=== PATIENT | male | born 1960 | race African-American/Black ===

== ENCOUNTER 2016-11-05 11:04 | Emergency (ER) ==
[2016-11-05 11:16] VITALS: BP 147/93; TEMP 97.2; BMI 23.7
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
[2016-11-05] MEDS ORDERED: PROTONIX IV IVP STA (12:14)
[2016-11-05 12:40] LABS: BASOPHILS % (AUTO) 0.6 % (0.0-3.0); EOSINOPHILS # (AUTO) 0.2 K/ul (0.0-0.7); EOSINOPHILS % (AUTO) 4.4 % (0.0-7.0); HEMATOCRIT 42.1 % (42.0-52.0); HEMOGLOBIN 14.2 g/dl (14.0-18.0); LYMPHOCYTES # (AUTO) 2.2 K/uL (0.60-3.4); LYMPHOCYTES % (AUTO) 43.7 (10.0-50.0); MEAN CORPUSCULAR HEMOGLOBIN 29.9 pg (27.0-31.0); MEAN CORPUSCULAR HGB CONC 33.7 (31.8-35.4); MEAN CORPUSCULAR VOLUME 88.6 fl (80.0-94.0); MONOCYTES # (AUTO) 0.6 K/uL (0.4-2.0); NEUTROPHILS % (AUTO) 40.3; PLATELET COUNT 208 10^3/uL (140-440); RED BLOOD COUNT 4.75 10^6/ul (4.70-6.10); WHITE BLOOD COUNT 5.01 K/ul (4.2-10.2)
[2016-11-05 13:14] LABS: ALANINE AMINOTRANSFERASE 25 U/L (12-78); ALBUMIN 4.1 g/dL (3.4-5.0); ALBUMIN/GLOBULIN RATIO 1.21; ALKALINE PHOSPHATASE 64 U/L (50-136); ANION GAP 13.3; ASPARTATE AMINO TRANSFERASE 19 U/L (15-37); BILIRUBIN,TOTAL 0.22 mg/dL (0.00-1.20); BLOOD UREA NITROGEN 19 mg/dL (7-18); BUN/CREATININE RATIO 18.26; CALCIUM 9.2 mg/dL (8.2-10.2); CARBON DIOXIDE 31 mmol/L (21-32); CHLORIDE 102 mmol/L (98-107); CREATINE KINASE 212 U/L; CREATININE 1.04 mg/dL (0.60-1.10); GLUCOSE 97 mg/dL (70-100); POTASSIUM 4.3 mmol/L (3.5-5.1); SODIUM 142 mmol/L (136-145); TOTAL PROTEIN 7.5 g/dL (6.4-8.2)
[2016-11-05 13:17] LABS: CREATINE KINASE MB 2.6 ng/ml (0.0-3.6)
[2016-11-05] MEDS ORDERED: GI COCKTAIL PO STA (13:18)
--- NOTE | 2016-11-05 13:45 | DI ---
EXAM: Chest one view HISTORY: Chest pain COMPARISON: 02/18/2011 TECHNIQUE: Single view of the chest was performed FINDINGS: The lungs are clear. There is no pleural effusion or pneumothorax. The heart is normal in size. The mediastinal contour is normal. There are no acute abnormalities of the bones. IMPRESSION: No acute cardiopulmonary process.
[2016-11-05] MEDS ORDERED: AMOXIL PO SCH (21:00)
[2016-11-05] MEDS ORDERED: BIAXIN PO SCH (21:00)
== END 2016-11-05 14:25 | disposition home or self-care (01) ==
LOC: ED 11:04
DX: K20.9 Esophagitis, unspecified (principal); R07.89 Other chest pain; Z79.899 Other long term (current) drug therapy
CPT/HCPCS: 36415; 80053; 82550; 82553; 84484; 85025; 85379; 93005; 93010; 96374; 99283

== ENCOUNTER 2017-08-31 11:05 | Emergency (ER) ==
[2017-08-31 11:06] VITALS: BMI 23.7
[2017-08-31] MEDS ORDERED: DECADRON 4 MG/ML SDV IM STA (11:18)
[2017-08-31] MEDS ORDERED: COLCRYS PO STA (11:18)
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
[2017-08-31 11:45] LABS: BASOPHILS % (AUTO) 0.6 % (0.0-3.0); EOSINOPHILS # (AUTO) 0.1 K/ul (0.0-0.7); HEMATOCRIT 39.9 % (42.0-52.0); HEMOGLOBIN 13.8 g/dl (14.0-18.0); IMMATURE GRANULOCYTE % (AUTO) 0.1 % (0.0-5.0); LYMPHOCYTES % (AUTO) 28.7 (10.0-50.0); MEAN CORPUSCULAR HEMOGLOBIN 30.2 pg (27.0-31.0); MEAN CORPUSCULAR HGB CONC 34.6 (31.8-35.4); MEAN CORPUSCULAR VOLUME 87.3 fl (80.0-94.0); MONOCYTES # (AUTO) 0.6 K/uL (0.4-2.0); MONOCYTES % (AUTO) 8.6 (0-10); NEUTROPHILS # (AUTO) 4.1 K/ul (2.0-6.9); PLATELET COUNT 192 10^3/uL (140-440); RED BLOOD COUNT 4.57 10^6/ul (4.70-6.10); WHITE BLOOD COUNT 6.87 K/ul (4.2-10.2)
[2017-08-31 12:06] LABS: ALBUMIN 3.8 g/dL (3.4-5.0); ALBUMIN/GLOBULIN RATIO 1.15; BILIRUBIN,TOTAL 0.19 mg/dL (0.00-1.20); BUN/CREATININE RATIO 24.24; CALCIUM 9.2 mg/dL (8.2-10.2); CREATININE 0.99 mg/dL (0.60-1.10); TOTAL PROTEIN 7.1 g/dL (6.4-8.2); URIC ACID 6.6 mg/dL (2.6-7.2)
[2017-08-31] MEDS ORDERED: STADOL IM STA (13:04)
[2017-08-31 13:07] VITALS: TEMP 96.7
[2017-08-31 13:49] VITALS: BP 177/98
--- NOTE | 2017-08-31 15:11 | DI ---
EXAM: LEFT FOOT, 3 VIEWS HISTORY: Pain and tenderness great toe FINDINGS / IMPRESSION: There is moderate hallux valgus. 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 No fracture or dislocation is identified. No joint effusion.
== END 2017-08-31 13:58 | disposition home or self-care (01) ==
LOC: ED 11:05
DX: M10.072 Idiopathic gout, left ankle and foot (principal); Z79.899 Other long term (current) drug therapy
CPT/HCPCS: 36415; 80053; 84550; 85025; 96372; 99283

== ENCOUNTER 2017-12-27 11:39 | Outpatient (CLI) | END 2017-12-27 11:40 | disposition home or self-care (01) | LOC: RHC-LAB 11:39 | PROVIDERS: ATTEND Nurse Practitioner Family | DX: R05 Cough (principal) | CPT/HCPCS: 87651; 87804 ==

== ENCOUNTER 2017-12-30 09:10 | Outpatient (CLI) ==
--- NOTE | 2017-12-30 14:48 | MRI ---
EXAM: Brain MRI without contrast. HISTORY: Headache. COMPARISON: Head CT 02/19/2011. TECHNIQUE: Multiplanar, multisequence MR images were acquired of the brain without contrast. FINDINGS: The midline structures are central and the craniocervical junction is unremarkable. The v entricles, sulci and cisterns are generally mildly prominent compatible with age related involutional changes. The brain parenchyma is no restricted diffusion to suggest acute hypoperfusion or infarction. There is a moderately large chronic left MCA branch infarct involving the left frontal lobe and contiguous anterior left parietal lobe. This extends from the superior left frontal lobe at the convexity to th e sylvian fissure and into the posterior left gibson radiata, posterior basal ganglia and posterior i nternal and external capsules. This produces ex vacuo enlargement of the posterior body and atrium o f the left lateral ventricle and mild enlargement the left sylvian fissure. There is a thin rim of pe riventricular FLAIR hyperintensity that is considered normal. A few of T2 hyperintensities are prese nt in the supratentorial white matter compatible the with minimal leukomalacia. Pulsation artifact i s noted in the posterior fossa. There is wallerian degeneration with volume loss and faint bright T2 signal in the left thalamus and volume loss in the left cerebral peduncle and bay. Volume loss and focal bright FLAIR signal is present in the left medullary pyramid. There is no abnormal dark gradi ent echo signal to indicate intracranial hemorrhage. There is minor gyriform T1 hyperintensity with thin linear gradient echo signal in the superior component of the left frontal lobe infarct compatibl e with laminar necrosis. There is attenuation of the posterior body of the corpus callosum. The pit uitary gland is low normal in size. There are no intraorbital masses. The frontal sinus is hypoplastic. Minor mucosal thickening is pre sent in the ethmoid air cells with more focal mucosal thickening in a posterior left ethmoid air cell . That maxillary sinuses are moderate to markedly hypoplastic. There is mild adenoidal hypertrophy with a small right nasopharyngeal submucosal cyst. Middle ears and mastoids are unremarkable. Flow voids are present in the major intracranial arteries and dural venous sinuses. There is dark T1 signal in the partially visualized C3 vertebra that may represent sclerosis. IMPRESSION: 1. No intracranial mass, hemorrhage or acute cerebral infarct. 2. Moderate large chronic left MCA branch infarct involving the left frontal lobe, contiguous anteri or left parietal lobe, left posterior gibson radiata and left posterior internal and external capsule s with wallerian degeneration in the left brainstem. 3. Age related involutional changes and minimal leukomalacia that may be due to sequela of migraines or chronic ischemic small vessel disease.
== END 2017-12-30 09:11 | disposition home or self-care (01) ==
LOC: RAD 09:10
PROVIDERS: ATTEND Nurse Practitioner Family
DX: R51 Headache (principal); G89.29 Other chronic pain; Z87.828 Personal history of other (healed) physical injury and trauma; Z98.890 Other specified postprocedural states

== ENCOUNTER 2018-01-06 07:31 | Outpatient (CLI) ==
--- NOTE | 2018-01-06 08:21 | US ---
EXAM: ULTRASOUND CAROTID DUPLEX, BILATERAL HISTORY: Dizziness FINDINGS: Hall-scale ultrasound, color Doppler and spectral analysis was performed. Velocities are in meters per second. By hall scale and color Doppler imaging, there were regions of heterogeneous plaque formation identif ied within the carotid bulbs and internal carotid arteries. These regions of plaque appeared to rebekah in easily less than 50% vessel diameter. RIGHT: External carotid artery peak systolic velocity: 1.5/0.4 Common carotid artery peak systolic velocity/end diastolic velocity: 0.8/0.2 Internal carotid artery peak systolic velocity: 0.8 ICA/CCA peak systolic velocity ratio: 1.0 ICA end diastolic velocity: 0.4 LEFT: External carotid artery peak systolic velocity: 0.8/0.2 Common carotid artery peak systolic velocity/end diastolic velocity: 1.0/0.3 Internal carotid artery peak systolic velocity: 0.7 ICA/CCA peak systolic velocity ratio: 0.7 ICA end diastolic velocity: 0.3 The right and left vertebral arteries were antegrade. IMPRESSION: 1. By hall scale and color Doppler imaging, there were regions of heterogeneous plaque formation natalia ntified within the carotid bulbs and internal carotid arteries. These regions of plaque appeared to remain easily less than 50% vessel diameter. 2. Internal carotid artery peak systolic velocities and ICA/CCA peak systolic velocity ratios indica te no hemodynamically significant stenosis bilaterally. 3. Both vertebral arteries were antegrade.
== END 2018-01-06 07:32 | disposition home or self-care (01) ==
LOC: RAD 07:31
PROVIDERS: ATTEND Nurse Practitioner Family
DX: R93.8 Abnormal findings on diagnostic imaging of other specified body structures (principal); R42 Dizziness and giddiness; E78.5 Hyperlipidemia, unspecified
CPT/HCPCS: 36415; 80053; 80061

== ENCOUNTER 2018-02-28 08:13 | Outpatient (CLI) | payer OTHER ==
--- NOTE | 2018-02-28 10:41 | MRI ---
EXAM: MRI left shoulder without contrast. HISTORY: Pain left shoulder. History of rotator cuff repair.. TECHNIQUE: Using a local coil on a high field strength magnet multiplanar multisequence MRI was perf ormed left shoulder without intravenous or intra-articular gadolinium contrast. COMPARISON: MRI left shoulder 11/07/2012.. FINDINGS: I do not have prior radiographs of the left shoulder available for comparison at the time of this dictation. Some anterolateral downsloping of the acromion again noted. Coracoacromial ligament/arch intact with thickening. Left acromioclavicular joint degenerative arthrosis/osteoarthrosis remains. Fatty infil tration of the deltoid muscle. No appreciable free fluid subacromial/subdeltoid space. Muscle bulk of the rotator cuff shows diffuse fatty infiltration. Progression of supraspinatus/infra spinatus atrophy. Prior attempted rotator cuff tear repair involving both supraspinatus and infraspi natus during the interval. Diffuse supraspinatus tendinosis/postsurgical change. Large full-thickne ss re-tear involving the supraspinatus. Upwards of 37 mm of distal tendon end retraction. This tear is full width. Posterior there is diffuse infraspinatus tendinosis with insertional fissuring and d iminutive insertional fibers albeit intact. This may reflect some degree of chronic partial thickness tearing. Posterior inferior intact teres minor tendon fibers. Anterior subscapularis tendinosis wi th intact fibers identified. The long head of the biceps tendon shows intact fibers along the proxim al extraarticular bicipital groove with intra-articular tendinosis. The left humeral head slightly subluxed superior. Moderate left glenohumeral joint osteoarthrosis. No left glenohumeral joint centered subchondral bone marrow edema or bone erosions. Subchondral michael deling with cyst formation. Left glenohumeral joint effusion. Left glenoid labrum grossly intact on this non-arthrographic examination. IMPRESSION: Left acromioclavicular joint degenerative arthrosis/osteoarthrosis remains. Thickening of the coracoacromial ligament/arch. Fatty infiltration deltoid muscle. Rotator cuff muscle bulk fatty infiltration. Progression of supraspinatus/infraspinatus atrophy. Pr ior attempted rotator cuff tear repair involving both supraspinatus and infraspinatus during the inte rval. Diffuse supraspinatus tendinosis/postsurgical change. Large full-thickness re-tear involving the sup raspinatus. This tear is full width. Posterior diffuse infraspinatus tendinosis with insertional fi ssuring and diminutive insertional fibers albeit intact which may reflect some degree of chronic part ial thickness tearing. Proximal long head biceps tendinosis. Moderate left glenohumeral joint osteoarthrosis. Left humeral head slightly subluxed superior. Left g lenohumeral joint effusion. Recommendation is obtainment and correlation with plain film radiographs of the left shoulder as none are available for comparison at the time of this dictation.
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
== END 2018-02-28 08:14 | disposition home or self-care (01) ==
LOC: RAD 08:13
PROVIDERS: ATTEND Nurse Practitioner Family
DX: M25.552 Pain in left hip (principal); M16.0 Bilateral primary osteoarthritis of hip; M87.051 Idiopathic aseptic necrosis of right femur; M25.512 Pain in left shoulder; Z87.39 Personal history of other diseases of the musculoskeletal system and connective tissue

== ENCOUNTER 2018-03-11 07:51 | Emergency (ER) ==
[2018-03-11 08:00] VITALS: BP 159/97; TEMP 8; BMI 24.7
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
--- NOTE | 2018-03-11 08:59 | DI ---
Exam: Right foot three-view History: Great toe pain Findings / impression: No acute bony or articular abnormalities are seen. Minor pelvic prominence w ith early bunion formation. Degenerative changes are minimal.
== END 2018-03-11 10:24 | disposition home or self-care (01) ==
LOC: ED 07:51
DX: M79.674 Pain in right toe(s) (principal); M19.071 Primary osteoarthritis, right ankle and foot; I10 Essential (primary) hypertension
CPT/HCPCS: 36415; 80053; 84550; 85025; 85651; 99283

== ENCOUNTER 2018-04-30 00:33 | Outpatient (CLI) | END 2018-04-30 00:50 | disposition short-term general hospital (02) | LOC: AMBL 00:33 | PROVIDERS: ATTEND Family Medicine | DX: R25.2 Cramp and spasm (principal); Z87.820 Personal history of traumatic brain injury ==

== ENCOUNTER 2018-05-09 13:24 | Outpatient (CLI) | payer OTHER | END 2018-05-09 13:25 | disposition home or self-care (01) | LOC: CAR 13:24 | PROVIDERS: ATTEND Emergency Medicine | DX: E78.5 Hyperlipidemia, unspecified (principal); M87.051 Idiopathic aseptic necrosis of right femur; M16.0 Bilateral primary osteoarthritis of hip; G40.909 Epilepsy, unspecified, not intractable, without status epilepticus; Z01.818 Encounter for other preprocedural examination | CPT/HCPCS: 36415; 80053; 80061; 80164; 84443; 85025; 93005; 93010 ==

== ENCOUNTER 2018-05-13 06:57 | Outpatient (CLI) ==
--- NOTE | 2018-05-13 09:19 | ECHO2D ---
Date of Exam: 05/13/18 Ordering Physician: MARLEE MURPHY MD Room # : OP Reason for Echo: HYPERLIPIDEMIA, ABNORMAL EKG M-Mode Normal Adult Results LV Dimensions Normal Adult Results AoV Opening excursions >1.6 >1.6 LVEDD-base- 3.5-5.8 4.6 Ao root dimensions 2.0-3.7 3.2 LVESD-base- 3.1-4.6 L. Atrium dimensions 1.9-3.8 3.9 Post. Wall thickness 0.8-1.1 1.2 IV septum (thickness) 0.7-1.2 1.2 Post. Wall excursion 0.72-1.3 NORMAL Septal motion NORMAL Systolic motion R. Ventricular cavity 1.5-2.0 NORMAL LVEF 60% 50% Paradoxical septal wall motion NORMAL 2-D : 2-D M Mode Echocardiogram was performed using apical four chamber and left parasternal long and short axis views. Mitral, tricuspid and aortic valves appear to be normal. Contractility of the left ventricle seems to be normal, so is the cavity size. Left atrial cavity size and aortic root appear to be normal. There is no pericardial effusion. There is no thrombus noted in the left ventricular or left aortic cavity. No mitral valve prolapse noted. M-MODE: MV: NORMAL AV: NORMAL TV: NORMAL PV: NORMAL CHAMBER SIZE: NORMAL WALL MOTION: NORMAL PERICARDIUM: NORMAL INTERPRETATION: 1. BORDERLINE LEFT VENTRICULAR HYPERTROPHY 2. NORMAL LEFT VENTRICULAR CONTRACTILITY 3. NORMAL VALVES MTDD
--- NOTE | 2018-05-13 09:48 | MODSTECHO ---
Date of Test: 05/13/18 Ordering Physician: MARLEE MURPHY MD Occupation: DISABLED Reason for Exam: HYPERLIPIDEMIA, ABNORMAL EKG Smoking History: NONE Height: 72" Weight:185 LBS Current Medications: IBUPROFEN, PROTONIX, LOVASTATIN, HYDROCODONE-ACETAMIN, DEPAKOTE, PRIMIDONE, CIALIS, MULTI-VITAMIN, BACLOFEN Resting EKG: SINUS RHYTHM / LVH WITH STRESS Target Heart Rate: 138/163 S-T SEGMENT STAGE MPH/GRADE HEART RATE BPM BLOOD PRESSURE mmhg RHYTHM +/- ELEVATION DEPRESSION SYMPTOMS/COMMENTS At Rest 70 150/88 SR X NONE 1 1.7/0% 130 188/102 SR X NONE 2 1.7/5% 3 1.7/10% 4 2.5/12% 5 3.4/14% Immediately After 130 SR FATIGUE Minutes Post Exercise 2 74 180/102 SR Minutes Post Exercise 5 66 152/92 SR NONE DURATION OF EXERCISE: 3:36 MAXIMUM HEART RATE REACHED: 130 REASON FOR TERMINATION: FATIGUE INTERPRETATION: 97% OXYGEN SATURATION WITH EXERCISE METS 3.0 1. NO EVIDENCE OF ISCHEMIA FROM HEART RATE 70 BPM RESTING TO 130 BPM WITH EXERCISE 2. NO CHEST PAIN OR CHEST DISCOMFORT 3. BLOOD PRESSURE RESPONSE - HYPERTENSION WITH EXERCISE 4. NO ARRHYTHMIAS LEFT VENTRICULAR CONTRACTILITY NORMAL - RESTING AND POST EXERCISE BY ECHO MTDD
--- NOTE | 2018-05-13 09:53 | ECHOSTRESS ---
Date of Exam: 05/13/18 Ordering Physician: MARLEE MURPHY MD Reason for Echo: HYPERLIPIDEMIA, ABNORMAL EKG, STRESS TEST - NO ISCHEMIA, EKG: SINUS RHYTHM / LEFT VENTRICULAR HYPERTROPHY M-Mode Normal Adult Results LV Dimensions Normal Adult Results AoV Opening excursions >1.6 LVEDD-base- 3.5-5.8 Ao root dimensions 2.0-3.7 LVESD-base- 3.1-4.6 L. Atrium dimensions 1.9-3.8 Post. Wall thickness 0.8-1.1 IV septum (thickness) 0.7-1.2 Post. Wall excursion 0.72-1.3 Septal motion Systolic motion R. Ventricular cavity 1.5-2.0 LVEF 60% Paradoxical septal wall motion 2-D: NORMAL LEFT VENTRICULAR CONTRACTILITY - RESTING AND POST EXERCISE M-MODE: MV: AV: TV: PV: CHAMBER SIZE: WALL MOTION: NORMAL LEFT VENTRICULAR CONTRACTILITY - RESTING AND POST EXERCISE PERICARDIUM: INTERPRETATION: 1. NORMAL LEFT VENTRICULAR CONTRACTILITY - RESTING AND POST EXERCISE MTDD
== END 2018-05-13 06:58 | disposition home or self-care (01) ==
LOC: CAR 06:57
PROVIDERS: ATTEND Emergency Medicine
DX: E78.5 Hyperlipidemia, unspecified (principal); R94.31 Abnormal electrocardiogram [ECG] [EKG]; Z01.818 Encounter for other preprocedural examination; D64.9 Anemia, unspecified

== ENCOUNTER 2018-07-20 12:26 | Emergency (ER) | payer OTHER ==
[2018-07-20 12:31] VITALS: BP 166/106; TEMP 97; BMI 24.4
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
[2018-07-20] MEDS ORDERED: DILAUDID 2 MG/ML SDV IM STA (13:34)
--- NOTE | 2018-07-20 14:43 | CT ---
EXAM: CT scan of the left shoulder without contrast HISTORY: Pain no injury TECHNIQUE: Helical imaging of the left shoulder was performed without contrast. 2 mm thin axial sekou ges and coronal and sagittal reconstructions were provided for interpretation. FINDINGS: The humeral head is seen in normal position. No acute fractures are seen. The scapula ap pears intact. There is mild to moderate loss of joint space seen within the left glenohumeral articul ation. Subchondral cystic changes are seen along the humeral head. The soft tissues are normal. IMPRESSION: No acute fracture dislocation seen within the left shoulder. Mild to moderate arthritis of the left glenohumeral articulation. MRI of the left shoulder can be obtained for further evaluation clinically indicated.
--- NOTE | 2018-07-20 14:48 | CT ---
Exam. CT of cervical spine without contrast History. Pain, no recent injury Comparison None Technique Axial scans acquired at 2 mm slice thicknesses. MPR coronal and sagittal sequence completed FINDINGS Sagittal sequence shows normal alignment facet joints vertebral bodies. There is a multilevel degene rate disc disease with disc space narrowing C3-C4, C4-C5, C6-C7 levels. There is decrease height of the C3, C4, C5, and C7 vertebra. The large bridging osteophytes are seen anteriorly at multiple leve ls. Coronal sequence shows degenerate changes uncovertebral joints. The odontoid is intact. Segmental analysis C1-C2 level: No disc protrusion or foraminal stenosis C2-C3 level: No disc protrusion or foraminal stenosis C3-C4 level: Prominent osteophyte disc complex indents dura with spinal canal diameter 8.9 mm. Face t uncovertebral joint degeneration with severe right and left foraminal stenosis. C4-C5 level: Moderate central disc bulge with narrowing of central spinal canal, 9.0 mm. Facet dege nerative changes with moderate left foraminal stenosis. C5-C6 level: Large osteophyte disc complex indents dura with spinal canal diameter 7.5 mm. Facet an d uncovertebral joint degenerative changes with severe right and moderate left foraminal stenosis. C6-C7 level: Resolution limited by shoulder girdle. Diffuse bulging of the disc with spinal canal d iameter 9.0 mm. Facet degenerative changes with severe right and moderate left foraminal stenosis Impression Alignment facet joints and vertebral bodies normal. Degenerative changes multiple facet and uncovertebral joints. Severe right and left C3-C4, moderate left C4-C5, severe right and moderate left C5-C6, severe right and moderate left C6-C7 foraminal stenosis 30. Multilevel degenerate disc disease. There is spinal canal stenosis at multiple levels, C3-C4 level 8 .9 mm, C4-C5 level, 9.0 mm, C5-C6 levels 7.5 mm, C6-C7 level 9.0 mm. Consider follow-up outpatient non emergent MRI to further assess neural structures.
== END 2018-07-20 16:15 | disposition home or self-care (01) ==
LOC: ED 12:26
DX: M25.512 Pain in left shoulder (principal); M50.30 Other cervical disc degeneration, unspecified cervical region; M48.02 Spinal stenosis, cervical region; M54.12 Radiculopathy, cervical region
CPT/HCPCS: 96372; 99283

== ENCOUNTER 2018-11-07 18:02 | Emergency (ER) | payer OTHER ==
[2018-11-07 18:10] VITALS: BP 140/78; TEMP 97.4; BMI 24.1
[2018-11-07] MEDS ORDERED: MORPHINE 2 MG/ML SYRINGE IM STA (18:32)
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
[2018-11-07] MEDS ORDERED: ZOFRAN 4 MG/2 ML IM STA (18:33)
== END 2018-11-07 19:08 | disposition home or self-care (01) ==
LOC: ED 18:02
DX: M54.5 Low back pain (principal)
CPT/HCPCS: 99282

== ENCOUNTER 2018-12-03 08:30 | Outpatient (RCR) ==
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
--- NOTE | 2018-11-14 10:09 | RS.OTDNOTE ---
Subjective Date of Note: 11/13/18 Visit #: 2 Number of visits approved by Insurance: 18 Payer Source: MEDICARE Treatment Diagnosis: Complete tear of left rotator cuff *Precautions: A risk for falls Current Complaints/Gains: Pt demo he is only able to raise UE to 80*. States laying down he can raise "all the way". States c/o pain at anterior shoulder with palpation, decreased following tx. Pain Assessment - Pain Description Pain Description: Radiating, Sharp, Dull, Aching Pain Location: LUE shoulder. Pain Description: sharp and dull Current Pain Intensity: 3 Worst Pain Intensity: 10 Modalities - Treatment Modality: Ultrasound Parameters/Method Applied: 1.5w/cm2 x 10 mins to anterior shoulder Patient Position: Sitting - Hot Pack/Cryotherapy Treatment: Hot Pack Comments:: HP prior to tx with pt ed to apply CP at home 2* ride waiting for him. Interventions - Exercise/Activities Exercise/Activities/Manual Therapy: Manual therapy to the RUE. PROM/gentle stretching in supine positon. Pt in prone positon for KIMBERLEY LAMAR, 08/04 with min A to complete. Pt ed on/performed codman's/table-top AROM and finger ladder. - Objective Findings Objective Findings:: Pt has difficulty with LUE shoulder flexion and abduction. Pt has increased pain with these motions and this limits his occupational performance. - Charges Timed Code Treatment Minutes: 50 Total Treatment Time: 56 Procedures billed for this date of service:: CP US EX Assessment Patient Education: Education of diagnosis, Body/Joint mechanics, Home Exercise Program, Home Safety, Activity Modification, Education of Plan of Care Patient demonstrates compliance with HEP?: No Short Term Goals Goal #1: Pt to increase LUE shoulder strength to 4/5. Goal to be met by: 11/27/18 Progress towards goal: Progressing Goal #2: Pt to increase LUE shlder flexion to 100 degrees AROM. Goal to be met by: 11/27/18 Progress towards goal: Progressing Goal #3: Pt to increase LUE shlder ABD to 75. Goal to be met by: 11/27/18 Progress towards goal: Progressing Goal #4: Pt to increase Int. Rot. to 75 deg. without pain. Goal to be met by: 11/27/18 Progress towards goal: Progressing Detention Goals Goal #1: Pt to increase LUE shoulder strength to 4+/5. Goal to be met by: 12/11/18 Progress towards goal: Progressing Goal #2: Pt to increase LUE shlder flexion to 145 degrees AROM. Goal to be met by: 12/11/18 Progress towards goal: Progressing Goal #3: Pt to increase LUE shlder ABD to 105. Goal to be met by: 12/11/18 Progress towards goal: Progressing Goal #4: Pt to increase int. Rot. To 90 deg. without pain. Goal to be met by: 12/11/18 Progress towards goal: Progressing Plan Dates of Detention Goals: 12/11/18 Expiration date of current Insurance Approval:: 12/11/18 PLAN: Continue per POC to max functional UE use for ADL completion.
--- NOTE | 2018-11-14 13:00 | RS.OTDNOTE ---
Subjective Date of Note: 11/14/18 Visit #: 3 Number of visits approved by Insurance: 18 Payer Source: MEDICARE Treatment Diagnosis: Complete tear of left rotator cuff *Precautions: A risk for falls Current Complaints/Gains: Pt states following therapy yesterday that he was able to raise his arm completly. States pain is better and demostates increased AROM. Pt states he forgot to ice his arm but states he did perform codman's ex's. Pain Assessment - Pain Description Pain Description: Radiating, Sharp, Dull, Aching Pain Location: LUE shoulder. Pain Description: sharp and dull Current Pain Intensity: 2 Worst Pain Intensity: 6-7 Modalities - Treatment Modality: Ultrasound Parameters/Method Applied: 1.5w/cm2 x 12 mins Treatment Area: shoulder Patient Position: Sitting - Hot Pack/Cryotherapy Treatment: Hot Pack, Cryotherapy Interventions - Exercise/Activities Exercise/Activities/Manual Therapy: Manual therapy to the RUE. PROM/gentle stretching in sitting position. Isometric ex's x4 directions, 08/04 along with codman;s, finger ladder and B UE oscar system with HEP. HOME EXERCISE PROGRAM: Isometric ex's/codman's - Objective Findings Objective Findings:: Pt has difficulty with LUE shoulder flexion and abduction. Pt has increased pain with these motions and this limits his occupational performance. - Charges Timed Code Treatment Minutes: 46 Total Treatment Time: 59 Procedures billed for this date of service:: HP US EX MT Assessment Patient Education: Education of diagnosis, Body/Joint mechanics, Home Exercise Program, Home Safety, Activity Modification, Education of Plan of Care Patient demonstrates compliance with HEP?: Yes Short Term Goals Goal #1: Pt to increase LUE shoulder strength to 4/5. Goal to be met by: 11/27/18 Progress towards goal: Progressing Goal #2: Pt to increase LUE shlder flexion to 100 degrees AROM. Goal to be met by: 11/27/18 Progress towards goal: Met Goal #3: Pt to increase LUE shlder ABD to 75. Goal to be met by: 11/27/18 Progress towards goal: Met Goal #4: Pt to increase Int. Rot. to 75 deg. without pain. Goal to be met by: 11/27/18 Progress towards goal: Progressing Longterm Goals Goal #1: Pt to increase LUE shoulder strength to 4+/5. Goal to be met by: 12/11/18 Progress towards goal: Progressing Goal #2: Pt to increase LUE shlder flexion to 145 degrees AROM. Goal to be met by: 12/11/18 Progress towards goal: Progressing Goal #3: Pt to increase LUE shlder ABD to 105. Goal to be met by: 12/11/18 Progress towards goal: Progressing Goal #4: Pt to increase int. Rot. To 90 deg. without pain. Goal to be met by: 12/11/18 Progress towards goal: Progressing Plan Dates of Longterm Goals: 12/11/18 Expiration date of current Insurance Approval:: 12/11/18 PLAN: Continue per POC to max functional I with ADL's and increase AROM/ strength.
--- NOTE | 2018-11-19 08:20 | RS.OTCXNS ---
OT Case Note Date of Scheduled Appointment: 11/19/18 Type: Cancel (Pt states he thinks he "overdid his arm" and needs to rest it today.)
--- NOTE | 2018-11-19 08:20 | RS.OTDNOTE ---
Subjective Date of Note: 11/17/18 Visit #: 4 Number of visits approved by Insurance: 18 Payer Source: MEDICARE Treatment Diagnosis: Complete tear of left rotator cuff *Precautions: A risk for falls Current Complaints/Gains: Pt states good compliance with applying CP over the wknd. States and demo he is now able to raise his UE over his head. States he is happy with his progress and relieved because he wouldn't be able to have surgery 2* his other arm's decreased function. Pain Assessment - Pain Description Pain Description: Radiating, Sharp, Dull, Aching Pain Location: LUE shoulder. Pain Description: sharp and dull Modalities - Treatment Modality: Ultrasound Parameters/Method Applied: 1.5w/cm2 x 12 mins to anterior shoulder - Hot Pack/Cryotherapy Treatment: Cryotherapy Comments:: MT/ice massage performed x4+- mins. Interventions - Exercise/Activities Exercise/Activities/Manual Therapy: Manual therapy to the RUE. PROM/gentle stretching in sitting position. Isometric ex's x4 directions, 08/04 along with codmans, finger ladder and B UE oscar system. Continued ed for HEP and PRE's. HOME EXERCISE PROGRAM: Isometric ex's/codman's - Objective Findings Objective Findings:: Pt has difficulty with LUE shoulder flexion and abduction. Pt has increased pain with these motions and this limits his occupational performance. - Charges Timed Code Treatment Minutes: 50 Total Treatment Time: 50 Procedures billed for this date of service:: EX MT US Assessment Patient Education: Education of diagnosis, Body/Joint mechanics, Home Exercise Program, Home Safety, Activity Modification, Education of Plan of Care Patient demonstrates compliance with HEP?: Yes Short Term Goals Goal #1: Pt to increase LUE shoulder strength to 4/5. Goal to be met by: 11/27/18 Progress towards goal: Partially Met Goal #2: Pt to increase LUE shlder flexion to 100 degrees AROM. Goal to be met by: 11/27/18 Progress towards goal: Met Goal #3: Pt to increase LUE shlder ABD to 75. Goal to be met by: 11/27/18 Progress towards goal: Met Goal #4: Pt to increase Int. Rot. to 75 deg. without pain. Goal to be met by: 11/27/18 Progress towards goal: Partially Met Comments: min increase of pain Prison Goals Goal #1: Pt to increase LUE shoulder strength to 4+/5. Goal to be met by: 12/11/18 Progress towards goal: Progressing Goal #2: Pt to increase LUE shlder flexion to 145 degrees AROM. Goal to be met by: 12/11/18 Progress towards goal: Met Goal #3: Pt to increase LUE shlder ABD to 105. Goal to be met by: 12/11/18 Progress towards goal: Met Goal #4: Pt to increase int. Rot. To 90 deg. without pain. Goal to be met by: 12/11/18 Progress towards goal: Progressing Plan Dates of Hearth Feeder Goals: 12/11/18 Expiration date of current Insurance Approval:: 12/11/18 PLAN: Continue per POC to max functional AROM and strength in (L) UE.
--- NOTE | 2018-11-21 09:50 | RS.OTDNOTE ---
Subjective Date of Note: 11/21/18 Visit #: 5 Number of visits approved by Insurance: [id number] Payer Source: MEDICARE Treatment Diagnosis: Complete tear of left rotator cuff *Precautions: A risk for falls Current Complaints/Gains: Pt states he cx'd his last tx 2* increased pain. States he had been doing to much at his house and cleaning up from kitchen construction. States UE felt good after leaving therapy on Saturday and that made him over-due it. Pain Assessment - Pain Description Pain Description: Radiating, Sharp, Dull, Aching Pain Location: LUE shoulder. Pain Description: sharp and dull Current Pain Intensity: 0 Worst Pain Intensity: 5 Modalities - Treatment Modality: Ultrasound Parameters/Method Applied: 1.5w/cm2 x 12 mins to anterior shoulder Patient Position: Sitting - Hot Pack/Cryotherapy Treatment: Cryotherapy Comments:: x10 mins following therapy with instruction for home use 3+ times daily. Interventions - Exercise/Activities Exercise/Activities/Manual Therapy: Manual therapy to the RUE. PROM/gentle stretching in sitting position. Isometric ex's x4 directions, 10/2 along with codmans, finger ladder and B UE oscar system. Yellow t-band ex's performed 10/ 1 bicep curls, IR/ER, push-outs and shoulder pull-downs. AROM shoulder flexion 5 /2. Continued ed for HEP of isometrics and PRE's. Handout given. HOME EXERCISE PROGRAM: Isometric ex's/codman's - Objective Findings Objective Findings:: Pt has difficulty with LUE shoulder flexion and abduction. Pt has increased pain with these motions and this limits his occupational performance. - Charges Timed Code Treatment Minutes: 48 Total Treatment Time: 61 Procedures billed for this date of service:: EX2 US CP Assessment Patient Education: Education of diagnosis, Body/Joint mechanics, Home Exercise Program, Home Safety, Activity Modification, Education of Plan of Care Problems/Comments: Increased pain with decreased strength/AROM shoulder flexion this date. Patient demonstrates compliance with HEP?: Yes Short Term Goals Goal #1: Pt to increase LUE shoulder strength to 4/5. Goal to be met by: 11/27/18 Progress towards goal: Partially Met Goal #2: Pt to increase LUE shlder flexion to 100 degrees AROM. Goal to be met by: 11/27/18 Progress towards goal: Regressing Comments: Previously met. Goal #3: Pt to increase LUE shlder ABD to 75. Goal to be met by: 11/27/18 Progress towards goal: Met Goal #4: Pt to increase Int. Rot. to 75 deg. without pain. Goal to be met by: 11/27/18 Progress towards goal: Partially Met Comments: Min increase of pain with PROM Nursing Home Goals Goal #1: Pt to increase LUE shoulder strength to 4+/5. Goal to be met by: 12/11/18 Progress towards goal: Progressing Goal #2: Pt to increase LUE shlder flexion to 145 degrees AROM. Goal to be met by: 12/11/18 Progress towards goal: Regressing Comments: Previously met Goal #3: Pt to increase LUE shlder ABD to 105. Goal to be met by: 12/11/18 Progress towards goal: Regressing Comments: Previously met Goal #4: Pt to increase int. Rot. To 90 deg. without pain. Goal to be met by: 12/11/18 Progress towards goal: Progressing Plan Dates of Deputy Insurance Commissioner Goals: 12/11/18 Expiration date of current Insurance Approval:: 12/11/18 PLAN: Continue per POC. Pt instructed to only perform isometric ex's this wknd with no add'l heavy lifting and to ice shoulder 3+ times a day.
--- NOTE | 2018-11-24 08:17 | RS.OTCXNS ---
OT Case Note Date of Scheduled Appointment: 11/24/18 Type: Cancel Reason for Cancel/NS: [employer] not running today, no ride to therapy
--- NOTE | 2018-11-26 13:06 | RS.OTDNOTE ---
Subjective Date of Note: 11/26/18 Visit #: 6 Number of visits approved by Insurance: [id number] Date of Evaluation: 11/12/18 Payer Source: MEDICARE Treatment Diagnosis: Complete tear of left rotator cuff *Precautions: A risk for falls Current Complaints/Gains: Pt states pain only with palpation of anterior shoulder. States and demo AROM WFL. Pain Assessment - Pain Description Pain Description: Radiating, Sharp, Dull, Aching Pain Location: LUE shoulder. Pain Description: sharp and dull Current Pain Intensity: 0-2 Worst Pain Intensity: 4-5 Modalities - Treatment Modality: Ultrasound Parameters/Method Applied: 1.5w/cm2 x12 mins to anterior shoulder. Patient Position: Sitting - Hot Pack/Cryotherapy Treatment: Cryotherapy Comments:: x10 mins following tx. Pt states good compliance with CP application at home. Interventions - Exercise/Activities Exercise/Activities/Manual Therapy: Manual therapy to the RUE. PROM/gentle stretching in sitting position. Isometric ex's x4 directions, 10/2 along with codmans, finger ladder and B UE oscar system. Yellow t-band/2# hand weight ex' s performed 10/ bicep curls, IR/ER, push-outs and shoulder pull-downs and RTC series ex. AROM shoulder flexion 5/2. Continued ed for HEP of isometrics and PRE's. HOME EXERCISE PROGRAM: Isometric ex's/codman's ice massage and B UE oscar system - Objective Findings Objective Findings:: Pt has difficulty with LUE shoulder flexion and abduction. Pt has increased pain with these motions and this limits his occupational performance. - Charges Timed Code Treatment Minutes: 48 Total Treatment Time: 61 Procedures billed for this date of service:: CP US EX2 Assessment Patient Education: Education of diagnosis, Body/Joint mechanics, Home Exercise Program, Home Safety, Activity Modification, Education of Plan of Care Patient demonstrates compliance with HEP?: Yes Short Term Goals Goal #1: Pt to increase LUE shoulder strength to 4/5. Goal to be met by: 11/27/18 Progress towards goal: Partially Met Goal #2: Pt to increase LUE shlder flexion to 100 degrees AROM. Goal to be met by: 11/27/18 Progress towards goal: Met Goal #3: Pt to increase LUE shlder ABD to 75. Goal to be met by: 11/27/18 Progress towards goal: Met Goal #4: Pt to increase Int. Rot. to 75 deg. without pain. Goal to be met by: 11/27/18 Progress towards goal: Met Colorist Dyer Goals Goal #1: Pt to increase LUE shoulder strength to 4+/5. Goal to be met by: 12/11/18 Progress towards goal: Progressing Goal #2: Pt to increase LUE shlder flexion to 145 degrees AROM. Goal to be met by: 12/11/18 Progress towards goal: Progressing Goal #3: Pt to increase LUE shlder ABD to 105. Goal to be met by: 12/11/18 Progress towards goal: Progressing Goal #4: Pt to increase int. Rot. To 90 deg. without pain. Goal to be met by: 12/11/18 Progress towards goal: Progressing Plan Dates of Colorist Dyer Goals: 12/11/18 Expiration date of current Insurance Approval:: 12/11/18 PLAN: Continue per POC to max functional UE AROM and strength
--- NOTE | 2018-11-28 11:22 | RS.OTDNOTE ---
Subjective Date of Note: 11/28/18 Visit #: 7 Number of visits approved by Insurance: [id number] Date of Evaluation: 11/12/18 Payer Source: MEDICARE Treatment Diagnosis: Complete tear of left rotator cuff *Precautions: A risk for falls Current Complaints/Gains: Pt is unable to move UE WFL's this date. States 0- min c/o pain but states "the strength just isn't there". States he has been busy with putting away dishes after kitchen remodal and that he did not ice his UE at all since his last therapy. PROM WNL. Pain Assessment - Pain Description Pain Description: Radiating, Sharp, Dull, Aching Pain Location: LUE shoulder. Pain Description: sharp and dull Current Pain Intensity: 1 Worst Pain Intensity: 4 Modalities - Treatment Modality: Ultrasound Parameters/Method Applied: 1.5w/cm2 x 12 mins Treatment Area: anterior shoulder Patient Position: Sitting - Hot Pack/Cryotherapy Treatment: Hot Pack, Cryotherapy Comments:: HP x 15 mins prior to TE with ice massage/MT Interventions - Exercise/Activities Exercise/Activities/Manual Therapy: Manual therapy to the RUE. PROM/gentle stretching in sitting position. Isometric ex's x4 directions, 10/2 along with codmans, finger ladder and B UE oscar system. Yellow t-band/2# hand weight ex' s performed 10/1 bicep curls, IR/ER, push-outs and shoulder pull-downs and RTC series ex. AROM shoulder flexion 5/2. Continued ed for HEP of isometrics and PRE's. HOME EXERCISE PROGRAM: Isometric ex's/codman's ice massage and B UE oscar system - Objective Findings Objective Findings:: Pt has difficulty with LUE shoulder flexion and abduction. Pt has increased pain with these motions and this limits his occupational performance. - Charges Timed Code Treatment Minutes: 46 Total Treatment Time: 61 Procedures billed for this date of service:: HP US EX2 Assessment Patient Education: Education of diagnosis, Body/Joint mechanics, Home Exercise Program, Home Safety, Activity Modification, Education of Plan of Care Patient demonstrates compliance with HEP?: Yes Short Term Goals Goal #1: Pt to increase LUE shoulder strength to 4/5. Goal to be met by: 11/27/18 Progress towards goal: Partially Met Goal #2: Pt to increase LUE shlder flexion to 100 degrees AROM. Goal to be met by: 11/27/18 Progress towards goal: Met Goal #3: Pt to increase LUE shlder ABD to 75. Goal to be met by: 11/27/18 Progress towards goal: Met Goal #4: Pt to increase Int. Rot. to 75 deg. without pain. Goal to be met by: 11/27/18 Progress towards goal: Met [facility] Goals Goal #1: Pt to increase LUE shoulder strength to 4+/5. Goal to be met by: 12/11/18 Progress towards goal: Progressing Goal #2: Pt to increase LUE shlder flexion to 145 degrees AROM. Goal to be met by: 12/11/18 Progress towards goal: Progressing Goal #3: Pt to increase LUE shlder ABD to 105. Goal to be met by: 12/11/18 Progress towards goal: Progressing Goal #4: Pt to increase int. Rot. To 90 deg. without pain. Goal to be met by: 12/11/18 Progress towards goal: Progressing Plan Dates of Chcf Goals: 12/11/18 Expiration date of current Insurance Approval:: 12/11/18 PLAN: Continue per POC to max functional UE AROM/strength
--- NOTE | 2018-12-03 09:43 | RS.OTDNOTE ---
Subjective Date of Note: 12/01/18 Visit #: 8 Number of visits approved by Insurance: [id number] Date of Evaluation: 11/12/18 Payer Source: MEDICARE Treatment Diagnosis: Complete tear of left rotator cuff *Precautions: A risk for falls Current Complaints/Gains: Pt states increased compliance with appyling CP over the wknd and demo good AROM upon arrival this date. Pain Assessment - Pain Description Pain Description: Radiating, Sharp, Dull, Aching Pain Location: LUE shoulder. Pain Description: sharp and dull Current Pain Intensity: 2 Worst Pain Intensity: 4 Modalities - Treatment Modality: Ultrasound Parameters/Method Applied: 1.5w/cm2 x12 mins Treatment Area: shoulder - Hot Pack/Cryotherapy Treatment: Hot Pack Comments:: x10 mins Interventions - Exercise/Activities Exercise/Activities/Manual Therapy: Manual therapy to the RUE. PROM/gentle stretching in sitting position. Isometric ex's x4 directions, 10/2 along with codmans, finger ladder and B UE oscar system. Yellow t-band/2# hand weight ex' s performed 10 bicep curls, IR/ER, push-outs and shoulder pull-downs and RTC series ex. AROM shoulder flexion 5/2. Continued ed for HEP of isometrics and PRE's. HOME EXERCISE PROGRAM: Isometric ex's/codman's ice massage and B UE oscar system - Objective Findings Objective Findings:: Pt has difficulty with LUE shoulder flexion and abduction. Pt has increased pain with these motions and this limits his occupational performance. - Charges Timed Code Treatment Minutes: 51 Total Treatment Time: 51 Procedures billed for this date of service:: US EX MT Assessment Patient Education: Education of diagnosis, Body/Joint mechanics, Home Exercise Program, Home Safety, Activity Modification, Education of Plan of Care Patient demonstrates compliance with HEP?: Yes Short Term Goals Goal #1: Pt to increase LUE shoulder strength to 4/5. Goal to be met by: 11/27/18 Progress towards goal: Partially Met Goal #2: Pt to increase LUE shlder flexion to 100 degrees AROM. Goal to be met by: 11/27/18 Progress towards goal: Met Goal #3: Pt to increase LUE shlder ABD to 75. Goal to be met by: 11/27/18 Progress towards goal: Met Goal #4: Pt to increase Int. Rot. to 75 deg. without pain. Goal to be met by: 11/27/18 Progress towards goal: Met Skilled Nursing Goals Goal #1: Pt to increase LUE shoulder strength to 4+/5. Goal to be met by: 12/11/18 Progress towards goal: Progressing Goal #2: Pt to increase LUE shlder flexion to 145 degrees AROM. Goal to be met by: 12/11/18 Progress towards goal: Partially Met Comments: kiki Goal #3: Pt to increase LUE shlder ABD to 105. Goal to be met by: 12/11/18 Progress towards goal: Progressing Goal #4: Pt to increase int. Rot. To 90 deg. without pain. Goal to be met by: 12/11/18 Progress towards goal: Progressing Plan Dates of Cyber Forensics Analyst Goals: 12/11/18 Expiration date of current Insurance Approval:: 12/11/18 PLAN: Continue per POC to max functional UE AROM/strength.
--- NOTE | 2018-12-03 09:59 | RS.OTDNOTE ---
Subjective Date of Note: 12/03/18 Visit #: 9 Number of visits approved by Insurance: 18 Date of Evaluation: 11/12/18 Payer Source: MEDICARE Treatment Diagnosis: Complete tear of left rotator cuff *Precautions: A risk for falls Current Complaints/Gains: Pt states and demo good AROM shoulder flexion this date. ABD remains 85* range AROM. Pt states anterior shoulder pain is better during palpation following TE with yellow tband. Pain Assessment - Pain Description Pain Description: Radiating, Sharp, Dull, Aching Pain Location: LUE shoulder. Pain Description: sharp and dull Modalities - Treatment Modality: Ultrasound Parameters/Method Applied: 1.5w/cm2 x 10 mins Treatment Area: anterior shoulder - Hot Pack/Cryotherapy Treatment: Hot Pack Comments:: HP prior to TE with ice massage performed following tx. Interventions - Exercise/Activities Exercise/Activities/Manual Therapy: Manual therapy to the RUE. PROM/gentle stretching in sitting position. Isometric ex's x4 directions, 10/2 along with codmans, finger ladder and B UE oscar system. Yellow t-band/2# hand weight ex' s performed 10/2 bicep curls, IR/ER, push-outs and shoulder pull-downs and RTC series ex. AROM shoulder flexion 10/2, no added resist. Continued ed for HEP of isometrics and PRE's. HOME EXERCISE PROGRAM: Isometric ex's/codman's ice massage and B UE oscar system - Objective Findings Objective Findings:: Pt has difficulty with LUE shoulder flexion and abduction. Pt has increased pain with these motions and this limits his occupational performance. - Charges Timed Code Treatment Minutes: 52 Total Treatment Time: 61 Procedures billed for this date of service:: HP US EX2 Assessment Patient Education: Education of diagnosis, Body/Joint mechanics, Home Exercise Program, Home Safety, Activity Modification, Education of Plan of Care Patient demonstrates compliance with HEP?: Yes Short Term Goals Goal #1: Pt to increase LUE shoulder strength to 4/5. Goal to be met by: 11/27/18 Progress towards goal: Partially Met Goal #2: Pt to increase LUE shlder flexion to 100 degrees AROM. Goal to be met by: 11/27/18 Progress towards goal: Met Goal #3: Pt to increase LUE shlder ABD to 75. Goal to be met by: 11/27/18 Progress towards goal: Met Goal #4: Pt to increase Int. Rot. to 75 deg. without pain. Goal to be met by: 11/27/18 Progress towards goal: Met Ict Security Specialist Goals Goal #1: Pt to increase LUE shoulder strength to 4+/5. Goal to be met by: 12/11/18 Progress towards goal: Progressing Goal #2: Pt to increase LUE shlder flexion to 145 degrees AROM. Goal to be met by: 12/11/18 Progress towards goal: Partially Met Goal #3: Pt to increase LUE shlder ABD to 105. Goal to be met by: 12/11/18 Progress towards goal: Progressing Goal #4: Pt to increase int. Rot. To 90 deg. without pain. Goal to be met by: 12/11/18 Progress towards goal: Progressing Plan Dates of Ict Security Specialist Goals: 12/11/18 Expiration date of current Insurance Approval:: 12/11/18 PLAN: Continue per POC to max functional UE strength/AROM.
== END 2018-12-04 23:59 ==
PROVIDERS: ATTEND Orthopaedic Surgery
DX: M75.122 Complete rotator cuff tear or rupture of left shoulder, not specified as traumatic (principal)

== ENCOUNTER 2018-12-09 08:00 | Outpatient (RCR) ==
--- NOTE | 2018-12-05 13:59 | RS.OTDNOTE ---
Subjective Date of Note: 12/05/18 Visit #: 10 Number of visits approved by Insurance: 18 Date of Evaluation: 11/12/18 Payer Source: MEDICARE Treatment Diagnosis: Complete tear of left rotator cuff *Precautions: A risk for falls Current Complaints/Gains: Pt demo full AROM shoulder flexion upon entering therapy this date. States pain continues to decrease in anterior shoulder. State good compliance with HEP. Pain Assessment - Pain Description Pain Location: LUE shoulder. Pain Description: sharp and dull Current Pain Intensity: 0 Worst Pain Intensity: 5 Modalities - Treatment Modality: Ultrasound Parameters/Method Applied: 1.0w/cm2 x 10 mins Treatment Area: anterior shoulder Patient Position: Sitting - Hot Pack/Cryotherapy Treatment: Hot Pack, Cryotherapy Interventions - Exercise/Activities Exercise/Activities/Manual Therapy: Manual therapy to the RUE. PROM/gentle stretching in sitting position. Isometric ex's x4 directions, 10/2 along with codmans, finger ladder and B UE oscar system. Yellow t-band/2# hand weight ex' s performed 10/2 bicep curls, IR/ER, push-outs and shoulder pull-downs and RTC series ex. AROM shoulder flexion 10/2, no added resist. Continued ed for HEP of isometrics and PRE's. HOME EXERCISE PROGRAM: Isometric ex's/codman's ice massage and B UE oscar system - Objective Findings Objective Findings:: Pt has difficulty with LUE shoulder flexion and abduction. Pt has increased pain with these motions and this limits his occupational performance. - Charges Timed Code Treatment Minutes: 35 Total Treatment Time: 50 Procedures billed for this date of service:: HP US EX Assessment Patient Education: Education of diagnosis, Body/Joint mechanics, Home Exercise Program, Home Safety, Activity Modification, Education of Plan of Care Patient demonstrates compliance with HEP?: Yes Short Term Goals Goal #1: Pt to increase LUE shoulder strength to 4/5. Goal to be met by: 11/27/18 Progress towards goal: Partially Met Goal #2: Pt to increase LUE shlder flexion to 100 degrees AROM. Goal to be met by: 11/27/18 Progress towards goal: Met Goal #3: Pt to increase LUE shlder ABD to 75. Goal to be met by: 11/27/18 Progress towards goal: Met Goal #4: Pt to increase Int. Rot. to 75 deg. without pain. Goal to be met by: 11/27/18 Progress towards goal: Met [employer] Planning Aide Goals Goal #1: Pt to increase LUE shoulder strength to 4+/5. Goal to be met by: 12/11/18 Progress towards goal: Progressing Goal #2: Pt to increase LUE shlder flexion to 145 degrees AROM. Goal to be met by: 12/11/18 Progress towards goal: Partially Met Goal #3: Pt to increase LUE shlder ABD to 105. Goal to be met by: 12/11/18 Progress towards goal: Progressing Goal #4: Pt to increase int. Rot. To 90 deg. without pain. Goal to be met by: 12/11/18 Progress towards goal: Progressing Plan Dates of Jail Goals: 12/11/18 Expiration date of current Insurance Approval:: 12/11/18 PLAN: Continue per POC to max functional UE AROM/strength
--- NOTE | 2018-12-05 14:52 | RS.OTPN ---
Subjective Date of Note: 12/05/18 Visit #: 10 Number of visits approved by Insurance: 18 Date of Evaluation: 11/12/18 Payer Source: MEDICARE Date of Onset/Injury/Change in Status: 01/29/13 Surgery Performed?: No Treatment Diagnosis: Complete tear of left rotator cuff Treatment Side (optional): Left *Precautions: A risk for falls Prior Level of Function.....Patient was independent with: ADL's, Self Care, Caregiving, Ambulation/Mobility, Community Integration/Access History of Condition/Mechanism of Injury: Pt reports his LUE shoulder has been bothering him for a few months. Pt reports he has increased pain of 10 with LUE shoulder flexion and abduction. Level of Function: Pt has difficulty with dressing due to LUE shoulder. Pt has difficulty with doing laundry, completing buttons, difficulty using tools. Pt has difficulty carrying groceries, opening jars, Functional Limitations: Sleep, Self Care, ADL's, Reaching, Pushing, Pulling, Lifting, Carrying, Ambulation Current Complaints/Gains: Pt reports he is improving. Pt has increased AROM of LUE to Full AROM Against [place] shoulder flexion, forward Flexed Shldr ABD, Retraction/Extension Pain Assessment - Pain Description Pain Location: in palpation of LUE. Pain Description: soreness Worst Pain Intensity: 4-5/10 Functional Outcome Measures UE Functional Index: 0 Neck Disability Index: 0 - G Codes & Severity Modifier G Codes: . Source of G Code score: Carry, Moving, and handling objects Observation - Observation Posture: Normal Handedness: Left - Left Shoulder ROM Left Shoulder Flexion: 155 Left Shoulder Extension: 70 Left Shoulder Abduction: 100 - Left Shoulder Strength Left Shoulder Flexion: 4+ Good + Left Shoulder Abduction: 3- Fair- Wrist ROM: Left WFL's Wrist Muscle Strength: Left WFL's Palpation Palpation Findings: Trigger Point Comments:: subscapularis tenderness Sensation Right Upper Extremity: Impaired Left Upper Extremity: Intact/Normal Modalities - Hot Pack/Cryotherapy Treatment: Cryotherapy Interventions - Exercise/Activities Exercise/Activities/Manual Therapy: Manual therapy to the RUE. PROM/gentle stretching in sitting position. Isometric ex's x4 directions, 10/2 along with codmans, finger ladder and B UE oscar system. Yellow t-band/2# hand weight ex' s performed 10/2 bicep curls, IR/ER, push-outs and shoulder pull-downs and RTC series ex. AROM shoulder flexion 10/2, no added resist. Continued ed for HEP of isometrics and PRE's. HOME EXERCISE PROGRAM: Isometric ex's/codman's ice massage and B UE oscar system - Objective Findings Objective Findings:: Pt has difficulty with LUE shoulder flexion and abduction. Pt has increased pain with these motions and this limits his occupational performance. - Charges Timed Code Treatment Minutes: . Total Treatment Time: . Procedures billed for this date of service:: . Assessment Assessment: Pt is making progress toward his goals! Pt has full AROM of the LUE an pain is decreasing. Patient Education: Education of diagnosis, Home Exercise Program, Home Safety, Education of Plan of Care Rehab Potential: Good Problems/Comments: some pain in LUE shoulder. Short Term Goals Goal #1: Pt to increase LUE shoulder strength to 4/5. Goal to be met by: 11/27/18 Progress towards goal: Partially Met Goal #2: Pt to increase LUE shlder flexion to 100 degrees AROM. Goal to be met by: 11/27/18 Progress towards goal: Met Goal #3: Pt to increase LUE shlder ABD to 75. Goal to be met by: 11/27/18 Progress towards goal: Met Goal #4: Pt to increase Int. Rot. to 75 deg. without pain. Goal to be met by: 11/27/18 Progress towards goal: Met [facility] Goals Goal #1: Pt to increase LUE shoulder strength to 4+/5. Goal to be met by: 12/11/18 Progress towards goal: Progressing Goal #2: Pt to increase LUE shlder flexion to 145 degrees AROM. Goal to be met by: 12/11/18 Progress towards goal: Partially Met Goal #3: Pt to increase LUE shlder ABD to 105. Goal to be met by: 12/11/18 Progress towards goal: Progressing Goal #4: Pt to increase int. Rot. To 90 deg. without pain. Goal to be met by: 12/11/18 Progress towards goal: Progressing Plan Dates of Lump Receiver Goals: 12/11/18 Expiration date of current Insurance Approval:: 12/11/18 PLAN: 2 X wk x Frequency: 2 X week Duration: 4 weeks
--- NOTE | 2018-12-09 09:44 | RS.OTDNOTE ---
Subjective Date of Note: 12/09/18 Visit #: 11 Number of visits approved by Insurance: 18 Date of Evaluation: 11/12/18 Payer Source: MEDICARE Treatment Diagnosis: Complete tear of left rotator cuff *Precautions: A risk for falls Current Complaints/Gains: Pt states he had a fall over the wknd. States increased UE pain upon entering therapy but 0-2 pain following tx. States he feels stronger and demo AROM WFL following tx. Pain Assessment - Pain Description Pain Location: in palpation of LUE. Pain Description: soreness Current Pain Intensity: 2 Worst Pain Intensity: 7-8 Modalities - Treatment Modality: Ultrasound Parameters/Method Applied: 1.0w/cm2 x 12 mins Treatment Area: anterior shoulder Patient Position: Sitting - Hot Pack/Cryotherapy Treatment: Cryotherapy Comments:: x10 mins following tx Interventions - Exercise/Activities Exercise/Activities/Manual Therapy: Manual therapy to the RUE. PROM/gentle stretching in supine/sitting position. Isometric ex's x4 directions, 10/2 along with codmans, finger ladder and B UE oscar system. Red t-band/2# hand weight ex's performed 10/2 bicep curls, IR/ER, push-outs and shoulder pull- downs and RTC series ex. AROM shoulder flexion/abduction 10/1 standing with 2# hand weight. Continued ed for HEP of isometrics and PRE's. HOME EXERCISE PROGRAM: Isometric ex's/codman's ice massage B UE oscar system and PRE's with gradded resist. - Objective Findings Objective Findings:: Pt has difficulty with LUE shoulder flexion and abduction. Pt has increased pain with these motions and this limits his occupational performance. - Charges Timed Code Treatment Minutes: 54 Total Treatment Time: 62 Procedures billed for this date of service:: CP US EX2 Assessment Patient Education: Education of diagnosis, Body/Joint mechanics, Home Exercise Program, Home Safety, Activity Modification, Education of Plan of Care Patient demonstrates compliance with HEP?: Yes Short Term Goals Goal #1: Pt to increase LUE shoulder strength to 4/5. Goal to be met by: 11/27/18 Progress towards goal: Met Goal #2: Pt to increase LUE shlder flexion to 100 degrees AROM. Goal to be met by: 11/27/18 Progress towards goal: Met Goal #3: Pt to increase LUE shlder ABD to 75. Goal to be met by: 11/27/18 Progress towards goal: Met Goal #4: Pt to increase Int. Rot. to 75 deg. without pain. Goal to be met by: 11/27/18 Progress towards goal: Met Video Coordinator Goals Goal #1: Pt to increase LUE shoulder strength to 4+/5. Goal to be met by: 12/11/18 Progress towards goal: Partially Met Goal #2: Pt to increase LUE shlder flexion to 145 degrees AROM. Goal to be met by: 12/11/18 Progress towards goal: Met Goal #3: Pt to increase LUE shlder ABD to 105. Goal to be met by: 12/11/18 Progress towards goal: Partially Met Comments: After prolonged stretching Goal #4: Pt to increase int. Rot. To 90 deg. without pain. Goal to be met by: 12/11/18 Progress towards goal: Partially Met Comments: min increase of pain Plan Dates of Video Coordinator Goals: 12/11/18 Expiration date of current Insurance Approval:: 12/11/18 PLAN: Continue tx per POC to max functional UE AROM/strength
--- NOTE | 2018-12-12 11:39 | RS.OTDCSUM ---
Subjective Date of Discharge: 12/12/18 Date of Evaluation: 11/12/18 Number of Visits: 11 Treatment Diagnosis: LUE shoulder pain and weakness Current Level of Function: Pt has met all goals at this time. Current Complaints/Gains: Pt has pain in the LUE. Pain Assessment - Pain Description Current Pain Intensity: 0 Functional Outcome Measures - G Codes & Severity Modifier G Codes: . Source of G Code score: . Observation - Observation Posture: Normal Handedness: Left Shoulder ROM: Left WFL's Shoulder Muscle Strength: Left WFL's - Left Shoulder Strength Left Shoulder Flexion: 4+ Good + Left Shoulder Extension: 4+ Good + Left Shoulder Abduction: 4+ Good + Left Shoulder Adduction: 4+ Good + Left Shoulder Internal Rotation: 4+ Good + Elbow ROM: Left WFL's Elbow Muscle Strength: Left WFL's - Left Elbow Strength Left Elbow Extension: 4+ Good + Left Elbow Flexion: 4+ Good + Left Forearm Pronation: 4+ Good + Left Forearm Supination: 4+ Good + Wrist ROM: Left WFL's Wrist Muscle Strength: Left WFL's - Left Wrist Strength Left Wrist Extension: 4+ Good + Left Wrist Flexion: 4+ Good + Left Wrist Radial Deviation: 4+ Good + Left Wrist Ulnar Deviation: 4+ Good + Left Forearm Pronation: 4+ Good + Left Forearm Supination: 4+ Good + Palpation Comments:: subscapularis tenderness Sensation Right Upper Extremity: Impaired Left Upper Extremity: Intact/Normal Interventions - Exercise/Activities Exercise/Activities/Manual Therapy: Manual therapy to the RUE. PROM/gentle stretching in supine/sitting position. Isometric ex's x4 directions, 10/2 along with codmans, finger ladder and B UE oscar system. Red t-band/2# hand weight ex's performed 10/2 bicep curls, IR/ER, push-outs and shoulder pull- downs and RTC series ex. AROM shoulder flexion/abduction 10/1 standing with 2# hand weight. Continued ed for HEP of isometrics and PRE's. HOME EXERCISE PROGRAM: Isometric ex's/codman's ice massage B UE oscar system and PRE's with gradded resist. - Objective Findings Objective Findings:: Pt has difficulty with LUE shoulder flexion and abduction. Pt has increased pain with these motions and this limits his occupational performance. - Charges Timed Code Treatment Minutes: . Total Treatment Time: . Procedures billed for this date of service:: . Assessment Assessment: Pt has met all goals per pt on 12/09/18. Rehab Potential: Good (Pt will continue with HEP/Oscar and IP.) Problems/Comments: CECILY has tone and not able to use. Short Term Goals Goal #1: Pt to increase LUE shoulder strength to 4/5. Goal to be met by: 11/27/18 Progress towards goal: Met Goal #2: Pt to increase LUE shlder flexion to 100 degrees AROM. Goal to be met by: 11/27/18 Progress towards goal: Met Goal #3: Pt to increase LUE shlder ABD to 75. Goal to be met by: 11/27/18 Progress towards goal: Met Goal #4: Pt to increase Int. Rot. to 75 deg. without pain. Goal to be met by: 11/27/18 Progress towards goal: Met Alf Goals Goal #1: Pt to increase LUE shoulder strength to 4+/5. Goal to be met by: 12/11/18 Progress towards goal: Partially Met Goal #2: Pt to increase LUE shlder flexion to 145 degrees AROM. Goal to be met by: 12/11/18 Progress towards goal: Met Goal #3: Pt to increase LUE shlder ABD to 105. Goal to be met by: 12/11/18 Progress towards goal: Met Goal #4: Pt to increase int. Rot. To 90 deg. without pain. Goal to be met by: 12/11/18 Progress towards goal: Met Plan Reason for Discharge:: All Goals Met
== END 2019-01-01 23:59 ==
PROVIDERS: ATTEND Orthopaedic Surgery
DX: M75.122 Complete rotator cuff tear or rupture of left shoulder, not specified as traumatic (principal)

== ENCOUNTER 2019-03-12 16:50 | Outpatient (CLI) ==
--- NOTE | 2019-03-13 10:42 | DI ---
EXAM: Four views of the left knee. History: Left knee pain and trauma. Findings: No acute fracture or dislocation. Joint spaces are preserved. Superior patellar enthesio benji. Mild anterior soft tissue swelling. Impression: 1. No acute osseous abnormality. 2. Superior patellar enthesiopathy 3. Mild anterior soft tissue swelling.
== END 2019-03-12 16:51 | disposition home or self-care (01) ==
LOC: RAD 16:50
PROVIDERS: ATTEND Nurse Practitioner Family
DX: M25.562 Pain in left knee (principal); E78.5 Hyperlipidemia, unspecified; G40.909 Epilepsy, unspecified, not intractable, without status epilepticus; D64.9 Anemia, unspecified; Z12.5 Encounter for screening for malignant neoplasm of prostate; W19.XXXA Unspecified fall, initial encounter
CPT/HCPCS: 36415; 80053; 80061; 84443; 85025

== ENCOUNTER 2019-04-03 08:00 | Outpatient (RCR) | payer OTHER ==
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
--- NOTE | 2019-04-03 13:12 | RS.OPPTDN ---
Subjective Date of Note: 04/03/19 Visit #: 2 Number of visits approved by Insurance: na Date of Evaluation: 04/02/19 Payer Source: MEDICARE Treatment Diagnosis: L knee pain, joint effusion, enthesopathy of knee, Current Subjective/complaints:: Patient has antalgic gait due to L knee pain today. *Precautions: A risk for falls Pain Assessment - Pain Description Pain Location: L knee Pain Description: Dull, Aching, Chronic Current Pain Intensity: 5 - Treatment Modality: Electrical Stim Unattended Parameters/Method Applied: 20 mins. high volt to L knee ,channel 1 above knee @ 220 pv,channel 2 below knee @ 320 pv. - Heat/Cryotherapy Treatment: Cryotherapy (concurrent with e-stim) Interventions - Exercise/Activities/Manual Therapy Exercises/Activities: 20 mins. ankle pumps,quad sets ,SLR's.Discussed avoiding extreme knee flexion whle the pain is elevated.HEP review. Total minutes of Exercise: 20 Manual Therapy: n/a Total minutes of Manual Therapy: 0 HOME EXERCISE PROGRAM: pt given written HEP including QS, SLR, SLR (3way) - Charges Timed Code Treatment Minutes: 20 Total Treatment Time: 40 Procedures billed for this date of service:: cp,e-stim,ex Assessment: Patient reports the e-stim and cold decreases the pain .He tolerates the exercises with out elevation of pain.One active heelslide increases the knee pain immediately.We discussed the reasoning of doing exercises that do not require excessive flexion.He understands ,is attentive to recommendations. Patient Education: Education of diagnosis, Body/Joint mechanics, Home Exercise Program, Home Safety, Activity Modification, Education of Plan of Care Patient demonstrates compliance with HEP?: Yes Short Term Goals Goal #1: pt independent with initial HEP Goal to be met by: 04/17/19 Progress towards Goal:: Progressing Goal #2: Improve L knee ext -6 Goal to be met by: 04/17/19 Goal #3: Decreased edema noted in L knee Goal to be met by: 04/17/19 Heavy Forger Helper Goals Goal #1: pt amb with improved step length on L with less pain Goal to be met by: 05/08/19 Goal #2: pt with no report of falling Goal to be met by: 05/08/19 Goal #3: L knee ext 0 Goal to be met by: 05/08/19 Goal #4: Improve L knee strength 02/06 Goal to be met by: 05/08/19 Plan Dates of Intermediate Goals: 05/08/19 Expiration date of current Insurance Approval:: na PLAN: Cont. skilled PT to reduce /elimiate L knee pain and increase the strength in L LE.
== END 2019-04-03 23:59 ==
PROVIDERS: ATTEND Nurse Practitioner Family
DX: M76.899 Other specified enthesopathies of unspecified lower limb, excluding foot (principal)

== ENCOUNTER 2019-06-22 14:10 | Emergency (ER) | payer OTHER ==
[2019-06-22 14:19] VITALS: BP 169/90; TEMP 96.8; BMI 24.6
[2019-06-22] MEDS ORDERED: ZOFRAN 4 MG/2 ML IM STA (14:24)
[2019-06-22] MEDS ORDERED: MORPHINE 2 MG/ML SYRINGE IM STA (14:24)
--- NOTE | 2019-06-22 15:21 | CT ---
EXAM: CT LUMBAR SPINE HISTORY: Pain after lifting TECHNIQUE: CT lumbar spine without contrast. 3-mm axial sections. Coronal and sagittal reformation s. COMPARISON: None FINDINGS: General bone density appears decreased. No noticeable scoliosis. Sacroiliac joints have mild arthro benji. There are bridging osteophytic spurs of the mid to upper spine. No acute fracture is identif ied. There is anterior spondylolisthesis of L4 on L5 by 5.7 mm. Vertebral body heights are maintain ed. There is moderate to severe degenerative disc and facet disease throughout the spine, greater at the lower levels. These degenerative changes lead to multilevel central canal and neural foraminal stenosis most apparent at L3/L4 and L4/L5 where the central canal stenosis appears severe. The neura l foraminal narrowing is probably greatest at L5/S1 on the right. There is no paraspinal inflammatio n or fluid collection. IMPRESSION: 1. No fracture is identified. 2. Significant degenerative changes of the spine. There is listhesis at L4/L5.
--- NOTE | 2019-06-22 15:28 | CT ---
EXAM: CT left knee without contrast HISTORY: Left leg pain, lateral distal femur pain and swelling, left leg cramping COMPARISON: None TECHNIQUE: CT left knee performed without intravenous contrast. Coronal and sagittal reformatted im ages obtained. FINDINGS: Bones appear demineralized. No fracture or dislocation. Small medial and retropatellar o steophytes. Mild tricompartmental joint space narrowing. Moderate to large knee joint effusion. An terior subcutaneous edema. Nice's cyst measures 2.0 x 1.4 cm to 0.0 x 1.4 x 2.3 cm. Mild quadriceps tendon enthesopathy. IMPRESSION: 1. No fracture or dislocation. 2. Moderate to large knee joint effusion. 3. Mild anterior subcutaneous edema, can be correlated for edema and/or cellulitis. 4. Mild tricompartmental osteoarthritis 5. Small Nice's cyst.
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
[2019-06-22] MEDS ORDERED: LIDOCAINE HCL 1% SDV SUBCUT STA ×2 (16:49→17:00)
[2019-06-22] MEDS ORDERED: DECADRON 4 MG/ML SDV IM STA (16:50)
[2019-06-22] MEDS ORDERED: ROCEPHIN 1 GM VIAL IM STA (17:25)
[2019-06-22] MEDS ORDERED: LIDOCAINE HCL 1% SDV IM STA (17:25)
== END 2019-06-22 17:43 | disposition home or self-care (01) ==
LOC: ED 14:10
DX: M25.562 Pain in left knee (principal); M25.462 Effusion, left knee; M54.5 Low back pain; X50.0XXA Overexertion from strenuous movement or load, initial encounter
CPT/HCPCS: 81001; 87070; 87205; 89050; 89060; 96372; 99283